=== PATIENT | female | born 1970 | race Caucasian/White ===

== ENCOUNTER → 2018-04-07 | Outpatient (CLI) | payer OTHER ==
[~2018-04-07] MED LIST: ACET325T14 PO; CALCIUM PO; CEPH-368 PO; DIAZ5TAB4 PO; DULO60CA7 PO; GLUCOSAMINE PO; HYDR-3240 PO; HYDR-3307 PO; IBUP200C8 PO; LYSINE PO; METH750T87 PO; MULT-658 PO; OXYC10TA6 PO; SENN1TAB67 PO; TUMERIC PO
== END | disposition home or self-care (01) ==
LOC: CFH 07:57
PROVIDERS: ATTEND Obstetrics & Gynecology Gynecology
DX: Z12.31 Encounter for screening mammogram for malignant neoplasm of breast (principal)
CPT/HCPCS: 77067

== ENCOUNTER → 2019-06-19 | Outpatient (CLI) | payer OTHER ==
[~2019-06-19] MED LIST changes: -HYDR-3307 PO; +HYDR-36 PO
== END | disposition home or self-care (01) ==
LOC: CFH 07:17
PROVIDERS: ATTEND Obstetrics & Gynecology Gynecology
DX: Z12.31 Encounter for screening mammogram for malignant neoplasm of breast (principal); N64.89 Other specified disorders of breast
CPT/HCPCS: 77063; 77067

== ENCOUNTER 2019-06-29 12:31 | Outpatient (CLI) | payer OTHER | END 2019-06-29 23:59 | disposition home or self-care (01) | LOC: CFH 12:31 | PROVIDERS: ATTEND Obstetrics & Gynecology Gynecology | DX: R92.1 Mammographic calcification found on diagnostic imaging of breast (principal); R92.8 Other abnormal and inconclusive findings on diagnostic imaging of breast | CPT/HCPCS: 77065 ==

== ENCOUNTER 2020-07-12 14:39 | Outpatient (CLI) | payer OTHER ==
[~2020-07-12 14:39] MED LIST changes: +HYDR-3246 PO; -HYDR-36 PO
== END 2020-07-12 23:59 | disposition home or self-care (01) ==
LOC: CFH 14:39
PROVIDERS: ATTEND Obstetrics & Gynecology Gynecology
DX: Z12.31 Encounter for screening mammogram for malignant neoplasm of breast (principal); Z12.39 Encounter for other screening for malignant neoplasm of breast
CPT/HCPCS: 76641; 77063; 77067